=== PATIENT | female | born 1970 ===

== ENCOUNTER 2017-01-07 10:54 | Emergency (ER) | payer MEDICAID, OTHER ==
[2017-01-07 11:12] VITALS: BMI 42.0
[2017-01-07 11:17] VITALS: O2SAT 99
[2017-01-07] MEDS ORDERED: Sodium Chloride 0.9% 500 ML IV STA (11:33)
--- NOTE | 2017-01-07 11:36 | ED PDOC ---
Arrival/HPI - General Chief Complaint: Abdominal Pain Time Seen by Provider: 01/07/17 10:58 Historian: Patient - History of Present Illness Time/Duration: Other (2 days) Symptom Onset: Gradual Symptom Course: Unchanged Quality: Aching, Stabbing, Cramping Severity Level: Moderate Associated Symptoms (Text): 01/07/17 11:34 Patient complains of a 2 day history of epigastric abdominal pain along with nausea and diarrhea. Symptoms began after she ate a corn muffin which she bought out at a restaurant. No vomiting. No radiation of the pain. She has never experienced this previously. No fever or chills. No injury or trauma. No chest pain palpitations or dyspnea. No genitourinary symptoms. Past Medical History - Infectious Disease Hx of Infectious Diseases: None - Psychiatric Hx Substance Use: No - Surgical History Hx Section: Yes (x 2) Other/Comment: L knee surgeries x3 - Anesthesia Hx Anesthesia Reactions: No Hx Malignant Hyperthermia: No Family/Social History - Physician Review Nursing Documentation Reviewed: Yes Family/Social History: Unknown Family HX Smoking Status: Never Smoked Hx Alcohol Use: No Hx Substance Use: No Allergies/Home Meds Allergies/Adverse Reactions: Allergies No Known Allergies Allergy (Verified 01/07/17 11:15) Review of Systems - Physician Review All systems were reviewed & negative as marked: Yes - Review of Systems Constitutional: Normal Respiratory: Normal Cardiovascular: Normal Gastrointestinal: Abdominal Pain, Diarrhea, Nausea, Anorexia. absent: Vomiting Genitourinary Female: absent: Dysuria, Frequency, Hematuria Neurological: absent: Headache, Dizziness Physical Exam Vital Signs Temp Pulse Resp BP Pulse Ox 01/07/17 13:12 97.8 F 60 16 128/87 99 01/07/17 13:07 97.8 F 60 16 128/87 99 01/07/17 10:55 98.6 F 81 18 157/109 H 99 Temperature: Afebrile Blood Pressure: Hypertensive Pulse: Regular Respiratory Rate: Normal Appearance: Positive for: Well-Appearing, Non-Toxic, Uncomfortable, Other (Obese ) Pain Distress: Mild Mental Status: Positive for: Alert and Oriented X 3 - Systems Exam Head: Present: Atraumatic, Normocephalic Pupils: Present: PERRL Extroacular Muscles: Present: EOMI Conjunctiva: Present: Normal Ears: Present: NORMAL TM, Normal Canal. No: Erythema, TM Bulging Mouth: Present: Moist Mucous Membranes Pharnyx: No: ERYTHEMA, EXUDATE Neck: Present: Normal Range of Motion Respiratory/Chest: Present: Clear to Auscultation, Good Air Exchange. No: Respiratory Distress, Accessory Muscle Use Cardiovascular: Present: Regular Rate and Rhythm, Normal S1, S2. No: Murmurs Abdomen: Present: Tenderness (Mild epigastric tenderness with plus minus right upper quadrant tenderness), Normal Bowel Sounds. No: Distention, Peritoneal Signs, Rebound, Guarding Back: Present: Normal Inspection. No: CVA Tenderness, Midline Tenderness, Paraspinal Tenderness Upper Extremity: Present: Normal Inspection. No: Cyanosis, Edema Lower Extremity: Present: Normal Inspection. No: Edema Neurological: Present: GCS=15, CN II-XII Intact, Speech Normal, Motor Func Grossly Intact Skin: Present: Warm, Dry, Normal Color. No: Rashes Psychiatric: Present: Alert, Oriented x 3, Normal Insight, Normal Concentration Medical Decision Making ED Course and Treatment: 01/07/17 13:20 Plan: -- Labs -- Proxtonix Inj -- Toradol -- Zofran Inj -- Urinalysis -- Abdomen Complete US -- Reassess and disposition Progress Notes: PROCEDURE: Abdomen Complete US Dictator : DR. Dhillon, Rocky HORTON Report Date : 01/07/2017 13:15:59 IMPRESSION: Mild fatty infiltration of the liver. Mild splenomegaly. No additional abnormality. 01/07/17 13:22 Patient's symptoms have improved. - Lab Interpretations Lab Results: 01/07/17 12:00 01/07/17 12:00 Lab Results 01/07/17 12:00: Sodium 139, Potassium 3.8, Chloride 107, Carbon Dioxide 25, Anion Gap 11, BUN 6 L, Creatinine 0.5 L, Est GFR ( Amer) > 60, Est GFR ( Non-Af Amer) > 60, Random Glucose 87, Calcium 8.7, Total Bilirubin 0.7, AST 21, ALT 30, Alkaline Phosphatase 72, Total Protein 7.2, Albumin 3.9, Globulin 3.3, Albumin/Globulin Ratio 1.2, Amylase 68, Lipase 49 01/07/17 12:00: Urine Color Yellow, Urine Appearance Clear, Urine pH 7.5, Ur Specific [place] 1.010, Urine Protein Negative, Urine Glucose (UA) Negative, Urine Ketones Negative, Urine Blood Negative, Urine Nitrate Negative, Urine Bilirubin Negative, Urine Urobilinogen 0.2, Ur Leukocyte Esterase Negative, Urine HCG, Qual Negative 01/07/17 12:00: PT 12.7 H, INR 1.15 H, APTT 23.7 L 01/07/17 12:00: WBC 6.3, RBC 4.10, Hgb 9.1 L, Hct 28.0 L, MCV 68.3 L, MCH 22.2 L , MCHC 32.5, RDW 16.5 H, Plt Count 276, MPV 10.3, Gran % 63.6, Lymph % (Auto) 24.9, Yates % (Auto) 9.0 H, Eos % (Auto) 2.2, Baso % (Auto) 0.3, Gran # 4.03, Lymph # 1.6, Yates # 0.6, Eos # 0.1, Baso # 0.02 - RAD Interpretation Radiology Orders: 01/07/17 11:33 ABDOMEN COMPLETE [US] Stat Ultrasound of the abdomen is read by the radiologist shows a fatty liver, otherwise no acute findings. Manager Nc: Radiologist - Medication Orders Current Medication Orders: Discontinued Medications Sodium Chloride (Sodium Chloride 0.9%) 500 mls @ 1,000 mls/hr IV .Q30M STA Stop: 01/07/17 12:02 Last Admin: 01/07/17 12:00 Dose: 1,000 mls/hr eMAR Start Stop Document 01/07/17 12:00 (Rec: 01/07/17 12:11 RED [id number]) Intravenous Solution Start Date 01/07/17 Start Time 12:11 Ketorolac Tromethamine (Toradol) 30 mg IVP STAT STA Stop: 01/07/17 11:34 Last Admin: 01/07/17 12:00 Dose: 30 mg MAR Pain Assessment Document 01/07/17 12:00 (Rec: 01/07/17 12:13 RED [id number]) Pain Reassessment Is this a pain reassessment? Yes Sleep Is patient sleeping during reassessment? No Presence of Pain Presence of Pain Yes Pain Scale Used Pain Scale Used Numeric Location Left, Right or Bilateral Bilateral Pain Location Body Site Abdomen Description Description Burning Intensity of Pain at present 10 Pain Behavior Rubbing Site Restlessness Refusal to Eat Aggravating Factors Contant Alleviating Factors/Management Inactivity Techniques IVP Administration Document 01/07/17 12:00 RG (Rec: 01/07/17 12:13 [id number]) Charges for Administration # of IVP Administrations 1 Ondansetron HCl (Zofran Inj) 4 mg IVP STAT STA Stop: 01/07/17 11:34 Last Admin: 01/07/17 12:00 Dose: 4 mg IVP Administration Document 01/07/17 12:00 RG (Rec: 01/07/17 12:13 [id number]) Charges for Administration # of IVP Administrations 1 Pantoprazole Sodium (Protonix Inj) 40 mg IVP STAT STA Stop: 01/07/17 11:34 Last Admin: 01/07/17 12:00 Dose: 40 mg IVP Administration Document 01/07/17 12:00 RG (Rec: 01/07/17 12:11 [id number]) Charges for Administration # of IVP Administrations 1 Disposition/Present on Arrival - Present on Arrival Any Indicators Present on Arrival: No History of DVT/PE: No History of Uncontrolled Diabetes: No Urinary Catheter: No History of Decub. Ulcer: No History Surgical Site Infection Following: None - Disposition Have Diagnosis and Disposition been Completed?: Yes Diagnosis: Abdominal pain, Nausea, Gastroenteritis Disposition: HOME/ ROUTINE Disposition Time: 13:23 Patient Plan: Discharge Condition: IMPROVED Discharge Instructions (ExitCare): Acute Abdominal Pain (ED) Prescriptions: Pantoprazole Sodium [Protonix] 40 mg PO DAILY #20 ect Ondansetron [Zofran Odt] 4 mg SL Q6 #20 odt Referrals: Ning Rudolph, [Primary Care Provider] - Follow up with primary Forms: [employer] (Turkish), WORK NOTE
[2017-01-07 12:06] LABS: BASO # 0.02 K/mm3 (0.0-2.0); BASO % 0.3 % (0.0-3.0); EOS # 0.1 (0.0-0.7); EOS % 2.2 % (1.5-5.0); GRAN # 4.03 (1.4-6.5); GRAN % 63.6 % (50.0-68.0); LYMPH # 1.6 (1.2-3.4); LYMPH % 24.9 % (22.0-35.0); MEAN CELL VOLUME 68.3 fl (80.0-105.0); MEAN CORPUSCULAR HEMOGLOBIN 22.2 pg (25.0-35.0); MEAN CORPUSCULAR HGB CONC 32.5 g/dl (31.0-37.0); MEAN PLATELET VOLUME 10.3 fl (7.0-11.0); MONO # 0.6 (0.1-0.6); PH,URINE 7.5 (4.7-8.0); RED CELL DISTRIBUTION WIDTH 16.5 % (11.5-14.5); URINE BILIRUBIN NEGATIVE (NEGATIVE); URINE BLOOD NEGATIVE (NEGATIVE); URINE GLUCOSE (UA) NEGATIVE (NEGATIVE); URINE KETONE NEGATIVE (NEGATIVE); URINE LEUKOCYTE ESTERASE NEGATIVE Leu/uL (NEGATIVE); URINE PROTEIN NEGATIVE mg/dL (<30 mg/dL); URINE UROBILINOGEN 0.2 E.U./dL (<1 E.U./dL); WHITE BLOOD COUNT 6.3 10^3/ul (4.5-11.0)
[2017-01-07 12:08] LABS: URINE APPEARANCE CLEAR (CLEAR); URINE COLOR YELLOW (YELLOW)
[2017-01-07 12:17] LABS: ALB/GLOB RATIO 1.2 (1.1-1.8); ALKALINE PHOSPHATASE 72 U/L (38-126); ALT/SGPT 30 U/L (7-56); AMYLASE 68 U/L (35-125); AST/SGOT 21 U/L (14-36); BILIRUBIN,TOTAL 0.7 mg/dL (0.2-1.3); BLOOD UREA NITROGEN 6 mg/dL (7-21); CALCIUM 8.7 mg/dL (8.4-10.5); CARBON DIOXIDE 25 mmol/L (21-33); CHLORIDE 107 mmol/L (98-107); GFR AFRICAN-AMERICAN > 60; GLUCOSE,RANDOM 87 mg/dL (70-110); INR 1.15 (0.93-1.08); LIPASE 49 U/L (23-300); PARTIAL THROMBOPLASTIN TIME 23.7 Seconds (25.1-36.5); POTASSIUM 3.8 mmol/L (3.6-5.0); SODIUM 139 mmol/L (132-148); TOTAL PROTEIN 7.2 g/dL (5.8-8.3)
[2017-01-07 13:12] VITALS: BP 128/87; PULSE 60; RESP 16; TEMP 97.8
--- NOTE | 2017-01-07 13:17 | US ---
HISTORY: epigastric pain COMPARISON: None. TECHNIQUE: Sonographic evaluation of the abdomen. FINDINGS: LIVER: Measures 14.8 cm. Mildly increased echogenicity, diffusely, consistent with fatty infiltration. . No mass. No intrahepatic bile duct dilatation. GALLBLADDER: Unremarkable. No gallstones. COMMON BILE DUCT: Measures 5 mm. No stones. No dilatation. PANCREAS: Unremarkable as visualized. No mass. No ductal dilatation. RIGHT KIDNEY: Measures 11.5cm. Normal echogenicity. No calculus, mass, or hydronephrosis. LEFT KIDNEY: Measures 12.0cm. Normal echogenicity. No calculus, mass, or hydronephrosis. SPLEEN: Mild splenomegaly. The spleen measures 13.7 cm in greatest dimension. There is no focal mass. AORTA: No aneurysmal dilatation. IVC: Unremarkable. OTHER FINDINGS: None. IMPRESSION: Mild fatty infiltration of the liver. Mild splenomegaly. No additional abnormality.
== END 2017-01-07 13:49 | disposition home or self-care (01) ==
LOC: ED 10:54
DX: K52.9 Noninfective gastroenteritis and colitis, unspecified (principal)
CPT/HCPCS: 76700; 80053; 81003; 82150; 83690; 84703; 85025; 85610; 85730; 96374; 96375; 99283; C9113; J1885; J2405; J7040

== ENCOUNTER 2017-01-29 20:03 | Emergency (ER) | payer MEDICAID ==
[2017-01-29 20:15] VITALS: O2SAT 100; BMI 45.7
--- NOTE | 2017-01-29 21:06 | ED PDOC ---
Arrival/HPI - General Chief Complaint: High Blood Pressure Time Seen by Provider: 01/29/17 20:15 Historian: Patient - History of Present Illness Narrative History of Present Illness (Text): 01/29/17 20:25 Deisy Rojas is a 46 year old female who presents to the Emergency department complaining of high blood pressure. Patient states she recently had a physical exam performed for work and told she was hypertensive. Patient was advised to follow-up. Patient reports a mild headache. Patient denies any dizziness, fever, chest pain, shortness of breath, chills, nausea, vomiting, diarrhea, urinary symptoms, back pain, neck pain, or any other complaints. Symptom Onset: Gradual Symptom Course: Unchanged Severity Level: Mild Activities at Onset: Light Context: Work Past Medical History - Provider Review Nursing Documentation Reviewed: Yes - Infectious Disease Hx of Infectious Diseases: None - Reproductive Currently : No - Cardiac Hx Hypertension: Yes - Pulmonary Hx Respiratory Disorders: No - Neurological Hx Neurological Disorder: No - HEENT Hx HEENT Disorder: No - Renal Hx Renal Disorder: No - Endocrine/Metabolic Hx Endocrine Disorders: No - Hematological/Oncological Hx Blood Disorders: No - Integumentary Hx Dermatological Disorder: No - Musculoskeletal/Rheumatological Hx Musculoskeletal Disorders: No - Gastrointestinal Hx Gastrointestinal Disorders: No - Genitourinary/Gynecological Hx Genitourinary Disorders: No - Psychiatric Hx Psychophysiologic Disorder: No Hx Substance Use: No - Surgical History Hx Section: Yes (x 2) Other/Comment: L knee surgeries x3 - Anesthesia Hx Anesthesia: Yes Hx Anesthesia Reactions: No Hx Malignant Hyperthermia: No Family/Social History - Physician Review Nursing Documentation Reviewed: Yes Family/Social History: Unknown Family HX Smoking Status: Never Smoked Hx Alcohol Use: No Hx Substance Use: No Allergies/Home Meds Allergies/Adverse Reactions: Allergies No Known Allergies Allergy (Verified 01/29/17 20:15) Review of Systems - Physician Review All systems were reviewed & negative as marked: Yes - Review of Systems Constitutional: Normal. absent: Fevers Eyes: Normal ENT: Normal Respiratory: Normal. absent: SOB, Cough Cardiovascular: Other (+high blood pressure). absent: Chest Pain Gastrointestinal: Normal. absent: Abdominal Pain, Diarrhea, Nausea, Vomiting Genitourinary Female: Normal. absent: Dysuria, Frequency, Hematuria, Urine Output Changes Musculoskeletal: Normal. absent: Back Pain, Neck Pain Skin: Normal. absent: Rash Neurological: Headache. absent: Dizziness, Focal Weakness Endocrine: Normal Hemo/Lymphatic: Normal Psychiatric: Normal Physical Exam Vital Signs Reviewed: Yes Vital Signs Temp Pulse Resp BP Pulse Ox 01/29/17 21:22 98.4 F 80 16 141/92 H 100 01/29/17 20:50 75 157/102 H 01/29/17 20:16 98.5 F 85 17 157/102 H 100 01/29/17 20:15 98.5 F 85 17 157/102 H 100 Temperature: Afebrile Blood Pressure: Hypertensive Pulse: Regular Respiratory Rate: Normal Appearance: Positive for: Well-Appearing, Non-Toxic, Comfortable Pain Distress: None Mental Status: Positive for: Alert and Oriented X 3 - Systems Exam Head: Present: Atraumatic, Normocephalic Pupils: Present: PERRL Extroacular Muscles: Present: EOMI Conjunctiva: Present: Normal Mouth: Present: Moist Mucous Membranes Neck: Present: Normal Range of Motion. No: Meningeal Signs, MIDLINE TENDERNESS , Paraspinal Tenderness Respiratory/Chest: Present: Clear to Auscultation, Good Air Exchange. No: Respiratory Distress, Accessory Muscle Use Cardiovascular: Present: Regular Rate and Rhythm, Normal S1, S2. No: Murmurs Abdomen: Present: Normal Bowel Sounds. No: Tenderness, Distention, Peritoneal Signs Back: Present: Normal Inspection. No: CVA Tenderness, Midline Tenderness, Paraspinal Tenderness Upper Extremity: Present: Normal Inspection. No: Cyanosis, Edema Lower Extremity: Present: Normal Inspection. No: Edema Neurological: Present: GCS=15, CN II-XII Intact, Speech Normal Skin: Present: Warm, Dry, Normal Color. No: Rashes Psychiatric: Present: Alert, Oriented x 3, Normal Insight, Normal Concentration Medical Decision Making ED Course and Treatment: 01/29/17 20:25 Impression: 46 year old female complaining of high blood pressure. Differential Diagnosis included but are not limited to: hypertension Plan: -- Zestril -- Reassess and disposition Prior Visits: Notes and results from previous visits were reviewed. On 01/07/2017, pt was seen in the Emergency department for epigastric pain. Pt was d/c home. Progress Notes: 01/29/17 21:31 On reevaluation the patient feels better and is in no acute distress. Pt asymptomatic. Patient is stable for discharge. Patient was instructed to follow up with physician/clinic in 1-2 days or return if symptoms persist/ worsen or new concerning symptoms arise. - Medication Orders Current Medication Orders: Discontinued Medications Lisinopril (Zestril) 10 mg PO DAILY LISSETTE Lisinopril (Zestril) 10 mg PO STAT STA Stop: 01/29/17 20:44 Last Admin: 01/29/17 20:50 Dose: 10 mg MAR Pulse and Blood Pressure Document 01/29/17 20:50 AB (Rec: 01/29/17 20:50 AB [id number]) Pulse Pulse Rate (60-90) 75 Blood Pressure Blood Pressure (100/60-150/90) 157/102 - Scribe Statement The provider has reviewed the documentation as recorded by the Scribyossi Tracy All medical record entries made by the Scribe were at my direction and personally dictated by me. I have reviewed the chart and agree that the record accurately reflects my personal performance of the history, physical exam, medical decision making, and the department course for this patient. I have also personally directed, reviewed, and agree with the discharge instructions and disposition. Disposition/Present on Arrival - Present on Arrival History of DVT/PE: No History of Uncontrolled Diabetes: No Urinary Catheter: No History of Decub. Ulcer: No History Surgical Site Infection Following: None - Disposition Diagnosis: Hypertension Disposition: HOME/ ROUTINE Patient Problems: Current Active Problems Problem Status Onset Hypertension Acute Discharge Instructions (ExitCare): Hypertension (ED) Prescriptions: Lisinopril [Prinivil] 10 mg PO DAILY #14 tablet Referrals: [facility] at [facility] [place] [Outside] - Follow up with primary PCP,NO [Primary Care Provider] - Follow up with primary Forms: [employer] (Paraguayan)
[2017-01-29 21:23] VITALS: BP 141/92; PULSE 80; RESP 16; TEMP 98.4
== END 2017-01-29 22:22 | disposition home or self-care (01) ==
LOC: ED 20:03
DX: I10 Essential (primary) hypertension (principal)

== ENCOUNTER 2017-12-28 10:21 | Emergency (ER) | payer MEDICAID, OTHER ==
[2017-12-28 10:52] VITALS: BMI 47.6
--- NOTE | 2017-12-28 10:55 | ED PDOC ---
Arrival/HPI - General Historian: Patient - History of Present Illness Narrative History of Present Illness (Text): 12/28/17 10:52 47yo female with no significant pmhx who present with complaint of nonproductive cough, fever and SOB x over 2weeks. States she saw her PMD for these symptoms twice and was placed on antibiotics twice. States symptom started after getting a Flu vaccine. States she finished the last antibiotics- Amoxicillin last week. Report Tmax of 102 last time. states she took antipyretic last night. States she saw her PMD two days ago and she told her that she can't do anything else for her and referred her to ED. She denies chest pain, nausea, abdominal pain, sick contact, travel, diaphoresis, LE edema, calf pain, recent travel/surgery, any other complaint. Past Medical History - Provider Review Nursing Documentation Reviewed: Yes - Infectious Disease Hx of Infectious Diseases: None - Cardiac Hx Hypertension: Yes - Pulmonary Hx Respiratory Disorders: No - Neurological Hx Neurological Disorder: No - HEENT Hx HEENT Disorder: No - Renal Hx Renal Disorder: No - Endocrine/Metabolic Hx Endocrine Disorders: No - Hematological/Oncological Hx Blood Disorders: No - Integumentary Hx Dermatological Disorder: No - Musculoskeletal/Rheumatological Hx Musculoskeletal Disorders: No - Gastrointestinal Hx Gastrointestinal Disorders: No - Genitourinary/Gynecological Hx Genitourinary Disorders: No - Psychiatric Hx Psychophysiologic Disorder: No Hx Substance Use: No - Surgical History Hx Section: Yes (x 2) Other/Comment: L knee surgeries x3 - Anesthesia Hx Anesthesia: Yes Hx Anesthesia Reactions: No Hx Malignant Hyperthermia: No Family/Social History - Physician Review Nursing Documentation Reviewed: Yes Family/Social History: Unknown Family HX Smoking Status: Never Smoked Hx Alcohol Use: No Hx Substance Use: No Allergies/Home Meds Allergies/Adverse Reactions: Allergies No Known Allergies Allergy (Verified 01/29/17 20:15) Review of Systems - Physician Review All systems were reviewed & negative as marked: Yes - Review of Systems Constitutional: Normal Eyes: Normal ENT: Normal Respiratory: Cough. absent: Sputum, Wheezing Cardiovascular: Normal Gastrointestinal: Normal Genitourinary Female: Normal Musculoskeletal: Normal Skin: Normal Neurological: Normal Endocrine: Normal Hemo/Lymphatic: Normal Psychiatric: Normal Physical Exam Vital Signs Reviewed: Yes Temperature: Afebrile Blood Pressure: Normal Pulse: Regular Respiratory Rate: Normal Appearance: Positive for: Well-Appearing, Non-Toxic, Comfortable, Other (Morbidly obese) Pain Distress: None Mental Status: Positive for: Alert and Oriented X 3 - Systems Exam Head: Present: Atraumatic, Normocephalic Pupils: Present: PERRL Extroacular Muscles: Present: EOMI Conjunctiva: Present: Normal Mouth: Present: Moist Mucous Membranes Neck: Present: Normal Range of Motion Respiratory/Chest: Present: Clear to Auscultation, Good Air Exchange. No: Respiratory Distress, Accessory Muscle Use, Wheezes, Decreased Breath Sounds, Rales, Retracting, Rhonchi, Tachypneic Cardiovascular: Present: Regular Rate and Rhythm, Normal S1, S2. No: Murmurs Abdomen: No: Tenderness, Distention, Peritoneal Signs Back: Present: Normal Inspection Upper Extremity: Present: Normal Inspection. No: Cyanosis, Edema Lower Extremity: Present: Normal Inspection. No: Edema Neurological: Present: GCS=15, CN II-XII Intact, Speech Normal Skin: Present: Warm, Dry, Normal Color. No: Rashes Psychiatric: Present: Alert, Oriented x 3, Normal Insight, Normal Concentration Medical Decision Making ED Course and Treatment: 12/28/17 13:20 PT present to ED for stated history. she is hemodynamically stable in ED and in no distress. She had a Clear lung sound on exam. Albuterol x 2 Prednisone Chest xray On re evaluation she remain hemodynamically stable and in no distress. chest xray IMPRESSION: No active disease. Result was DW the pt. she will be DC home with Albuterol and tessalon rx. They is no indication for abx at this time. Referred to her PMD. Disposition/Present on Arrival - Present on Arrival Any Indicators Present on Arrival: No History of DVT/PE: No History of Uncontrolled Diabetes: No Urinary Catheter: No History Surgical Site Infection Following: None - Disposition Have Diagnosis and Disposition been Completed?: Yes Diagnosis: Cough Disposition: HOME/ ROUTINE Disposition Time: 13:25 Patient Plan: Discharge Condition: STABLE Discharge Instructions (ExitCare): Cough in Adults Additional Instructions: Follow up with your Doctor Return to ED for any new or worsening symptoms Prescriptions: Albuterol HFA [Ventolin HFA 90 mcg/actuation (8 g)] 2 puff IH [id number] #1 puff Benzonatate [Tessalon Perle] 100 mg PO TID #20 capsule
[2017-12-28] MEDS ORDERED: Albuterol 0.083% Inhal Sol (2.5 mg/3 mL) UD INH STA ×2 (10:56→12:54)
[2017-12-28 11:05] VITALS: BP 139/92; PULSE 90; RESP 18; TEMP 98.2; O2SAT 98
--- NOTE | 2017-12-28 13:23 | RAD ---
Date of service: 12/28/2017 HISTORY: cough COMPARISON: No prior. TECHNIQUE: Chest PA and lateral FINDINGS: LUNGS: No active pulmonary disease. PLEURA: No significant pleural effusion identified. No pneumothorax apparent. CARDIOVASCULAR: No aortic atherosclerotic calcification present. Normal cardiac size. No pulmonary vascular congestion. OSSEOUS STRUCTURES: No significant abnormalities. VISUALIZED UPPER ABDOMEN: Normal. OTHER FINDINGS: None. IMPRESSION: No active disease.
== END 2017-12-28 14:05 | disposition home or self-care (01) ==
LOC: ED 10:21
DX: R05 Cough (principal); I10 Essential (primary) hypertension